=== PATIENT | male | born 1995 | race Caucasian/White ===

== ENCOUNTER 2021-08-04 06:24 | Emergency (ER) | payer OTHER ==
[2021-08-04 07:54] LABS: HEMOGLOBIN 16.1 gm/dl (14.0-17.5); RED BLOOD COUNT 5.4 M/UL (4.20-5.50); WHITE BLOOD COUNT 11.9 K/UL (4.5-11.0)
[2021-08-04 08:12] LABS: BUN/CREATININE RATIO 12 (0-10)
== END 2021-08-04 10:15 | disposition home or self-care (01) ==
LOC: ER1 06:24
PROVIDERS: Physician Assistant Medical
DX: R07.9 Chest pain, unspecified (principal); F17.210 Nicotine dependence, cigarettes, uncomplicated
CPT/HCPCS: 80053; 82550; 82553; 83874; 84484; 85025; 85379; 93005